=== PATIENT | female | born 1980 | race Caucasian/White ===

== ENCOUNTER 2018-06-21 11:23 | Emergency (ER) | payer BC ==
[~2018-06-21] VITALS: Ht 154.9 cm; Wt 64.4 kg
[2018-06-21 11:54] LABS: BILIRUBIN,URINE NEGATIVE (NEG); CLARITY,URINE CLEAR; COLOR,URINE YELLOW; NITRITE,URINE NEGATIVE (NEG); PROTEIN,URINE NEGATIVE (NEG-TRACE); UROBILINOGEN,URINE 0.2 mg/dL (0.2 mg/dL)
[2018-06-21 12:05] LABS: RBC,URINE 20-40 /HPF (0-2); SQUAMOUS EPITHELIAL CELL,UR MOD /LPF; WBC,URINE OCC /HPF (0-4)
[2018-06-21 12:06] LABS: BACTERIA,URINE FEW /HPF (0-FEW)
[2018-06-21 12:39] LABS: BASO # 0.1 x10^3/uL (0.0-0.2); BASO % 1 % (0-3); EOS % 1 % (0-3); HEMATOCRIT 42.7 % (36.0-47.0); HEMOGLOBIN 14.7 g/dL (12.0-15.5); LYMPH # 1.7 x10^3/uL (1.0-4.8); LYMPH % 22 % (24-48); MEAN CORPUSCULAR HEMOGLOBIN 32 pg (25-35); MEAN CORPUSCULAR HGB CONC 34 g/dL (31-37); MEAN CORPUSCULAR VOLUME 92 fL (79-100); MONO # 0.5 x10^3/uL (0.0-1.1); MONO % 7 % (0-9); NEUT # 5.2 x10^3uL (1.8-7.7); NEUT % 69 % (31-73); PLATELET COUNT 259 x10^3/uL (140-400); RED BLOOD COUNT 4.64 x10^6/uL (3.50-5.40); RED CELL DISTRIBUTION WIDTH 13.1 % (11.5-14.5); WHITE BLOOD COUNT 7.6 x10^3/uL (4.0-11.0)
[2018-06-21 12:55] LABS: CALCIUM 9.7 mg/dL (8.5-10.1); CREATININE 0.7 mg/dL (0.6-1.0); GFR 93.6; POTASSIUM 3.8 mmol/L (3.5-5.1)
[2018-06-21 13:00] LABS: ALBUMIN 3.8 g/dL (3.4-5.0); ALBUMIN/GLOBULIN RATIO 0.9 (1.0-1.7); TOTAL BILIRUBIN 0.3 mg/dL (0.2-1.0); TOTAL PROTEIN 7.9 g/dL (6.4-8.2)
--- NOTE | 2018-06-21 13:04 | RAD ---
OB <14 WKS W/TV History: Abdominal pain Comparison: None. Findings: Multiple transabdominal sonographic images of the pelvis are submitted. Uterus measured 11.8 x 6.6 x 8.8 cm. There is single intrauterine gestational sac. There is demonstrable pole although no demonstrable cardiac activity on color Doppler imaging. Left ovary measured 2.4 x 1.8 x 1.7 cm with normal low resistance vascularity. Right ovary measured 2.2 x 2 x 2.4 cm with normal low resistance vascularity. No free fluid is demonstrated. Transvaginal ultrasound: Multiple transvaginal sonographic images of the pelvis are submitted. There is again single intrauterine gestational sac with identifiable pole. However no cardiac activity is demonstrated on M-mode analysis or color Doppler imaging. Tok-rump length measurement of 2.05 cm corresponds with 8 weeks 5 days. Adjusted ultrasound age is 8 weeks 5 days with estimated delivery date of 01/26/2019. LMP age is 15 weeks 0 days with estimated delivery date of 12/13/2018. No free fluid is demonstrated. Mean sac dimension is not submitted although gestational sac measures greater than 4 cm Impression: 1. There is a single intrauterine gestational sac with identifiable pole although no demonstrable cardiac activity on color Doppler imaging or M-mode analysis despite estimated ultrasound age of 8 weeks 5 days, sonographic evidence of demise. Electronically signed by: Ad Welch MD (06/21/2018 1:00 PM) [email or web address]
--- NOTE | 2018-06-21 13:31 | PHYS DOC ---
Past Medical History Additional Past Medical Histor: thyroid disease Past Surgical History: No Surgical History Alcohol Use: None Drug Use: None Adult General Chief Complaint Chief Complaint: ABDOMINAL PAIN IN HPI HPI Patient is a 37 year old female who presents with fear of demise. The patient states that she has been followed by [facility]. She states that her last period was 03/18/2018. She states that they did an ultrasound at [facility] today and stated that there was no cardiac activity. The patient states that she had had some right flank pain and [facility] was worried that she could have an infection. They told her to present to the nearest emergency department. The patient denies vaginal bleeding or pelvic pain. She denies fever, nausea or vomiting. Review of Systems Review of Systems Constitutional: Denies fever or chills [] Eyes: Denies change in visual acuity, redness, or eye pain [] HENT: Denies nasal congestion or sore throat [] Respiratory: Denies cough or shortness of breath [] Cardiovascular: No additional information not addressed in HPI [] GI: Denies abdominal pain, nausea, vomiting, bloody stools or diarrhea [] : See history of present illness Musculoskeletal: Denies back pain or joint pain [] Integument: Denies rash or skin lesions [] Neurologic: Denies headache, focal weakness or sensory changes [] Endocrine: Denies polyuria or polydipsia [] All other systems were reviewed and found to be within normal limits, except as documented in this note. Allergies Allergies Allergies Coded Allergies Type Severity Reaction Last Updated Verified codeine Allergy Severe 06/21/18 Yes Physical Exam Physical Exam Constitutional: Well developed, well nourished, no acute distress, non-toxic appearance. [] Cardiovascular:Heart rate regular rhythm, no murmur [] Lungs & Thorax: Bilateral breath sounds clear to auscultation [] Abdomen: Bowel sounds normal, soft, no tenderness, no masses, no pulsatile masses. [] Skin: Warm, dry, no erythema, no rash. [] Back: No tenderness, no CVA tenderness. [] Extremities: No tenderness, no cyanosis, no clubbing, ROM intact, no edema. [] Neurologic: Alert and oriented X 3, normal motor function, normal sensory function, no focal deficits noted. [] Psychologic: Affect normal, judgement normal, mood normal. [] Current Patient Data Vital Signs Vital Signs Date Time Temp Pulse Resp B/P (MAP) Pulse Ox O2 Delivery O2 Flow Rate FiO2 06/21/18 13:53 68 16 132/63 (86) 98 Room Air 06/21/18 11:57 98.9 98.9 Lab Values Laboratory Tests Test 06/21/18 11:30 06/21/18 11:34 06/21/18 12:08 Urine Collection Type Unknown Urine Color Yellow Urine Clarity Clear Urine pH 7.0 Urine Specific Birney 1.010 Urine Protein Negative mg/dL (NEG-TRACE) Urine Glucose (UA) Negative mg/dL (NEG) Urine Ketones (Stick) Negative mg/dL (NEG) Urine Blood Small (NEG) Urine Nitrite Negative (NEG) Urine Bilirubin Negative (NEG) Urine Urobilinogen Dipstick 0.2 mg/dL (0.2 mg/dL) Urine Leukocyte Esterase Negative (NEG) Urine RBC 20-40 /HPF (0-2) Urine WBC Occ /HPF (0-4) Urine Squamous Epithelial Cells Mod /LPF Urine Bacteria Few /HPF (0-FEW) Urine Mucus Mod /LPF POC Urine HCG, Qualitative Hcg positive (Negative) White Blood Count 7.6 x10^3/uL (4.0-11.0) Red Blood Count 4.64 x10^6/uL (3.50-5.40) Hemoglobin 14.7 g/dL (12.0-15.5) Hematocrit 42.7 % (36.0-47.0) Mean Corpuscular Volume 92 fL (79-100) Mean Corpuscular Hemoglobin 32 pg (25-35) Mean Corpuscular Hemoglobin Concent 34 g/dL (31-37) Red Cell Distribution Width 13.1 % (11.5-14.5) Platelet Count 259 x10^3/uL (140-400) Neutrophils (%) (Auto) 69 % (31-73) Lymphocytes (%) (Auto) 22 % (24-48) L Monocytes (%) (Auto) 7 % (0-9) Eosinophils (%) (Auto) 1 % (0-3) Basophils (%) (Auto) 1 % (0-3) Neutrophils # (Auto) 5.2 x10^3uL (1.8-7.7) Lymphocytes # (Auto) 1.7 x10^3/uL (1.0-4.8) Monocytes # (Auto) 0.5 x10^3/uL (0.0-1.1) Eosinophils # (Auto) 0.0 x10^3/uL (0.0-0.7) Basophils # (Auto) 0.1 x10^3/uL (0.0-0.2) Maternal Serum HCG Beta Subunit 2354 mIU/mL (0-5) H Sodium Level 140 mmol/L (136-145) Potassium Level 3.8 mmol/L (3.5-5.1) Chloride Level 103 mmol/L (98-107) Carbon Dioxide Level 25 mmol/L (21-32) Anion Gap 12 (6-14) Blood Urea Nitrogen 9 mg/dL (7-20) Creatinine 0.7 mg/dL (0.6-1.0) Estimated GFR (Cockcroft-Gault) 93.6 BUN/Creatinine Ratio 13 (6-20) Glucose Level 90 mg/dL (70-99) Calcium Level 9.7 mg/dL (8.5-10.1) Total Bilirubin 0.3 mg/dL (0.2-1.0) Aspartate Amino Transferase (AST) 13 U/L (15-37) L Alanine Aminotransferase (ALT) 23 U/L (14-59) Alkaline Phosphatase 67 U/L (46-116) Total Protein 7.9 g/dL (6.4-8.2) Albumin 3.8 g/dL (3.4-5.0) Albumin/Globulin Ratio 0.9 (1.0-1.7) L Laboratory Tests 06/21/18 12:08 Laboratory Tests 06/21/18 12:08 EKG EKG [] Radiology/Procedures Radiology/Procedures []Signed PATIENT: YOANDY SHAW ACCOUNT: [id number] : 1980 LOCATION: ER AGE: 37 SEX: F EXAM STATUS: REG ER ORD. PHYSICIAN: CHETAN BAEZ APRN REASON: probable demise, ABDOMINAL PAIN RT PROCEDURE: OB <14 WKS W/TV OB <14 WKS W/TV History: Abdominal pain Comparison: None. Findings: Multiple transabdominal sonographic images of the pelvis are submitted. Uterus measured 11.8 x 6.6 x 8.8 cm. There is single intrauterine gestational sac. There is demonstrable pole although no demonstrable cardiac activity on color Doppler imaging. Left ovary measured 2.4 x 1.8 x 1.7 cm with normal low resistance vascularity. Right ovary measured 2.2 x 2 x 2.4 cm with normal low resistance vascularity. No free fluid is demonstrated. Transvaginal ultrasound: Multiple transvaginal sonographic images of the pelvis are submitted. There is again single intrauterine gestational sac with identifiable pole. However no cardiac activity is demonstrated on M-mode analysis or color Doppler imaging. Radom-rump length measurement of 2.05 cm corresponds with 8 weeks 5 days. Adjusted ultrasound age is 8 weeks 5 days with estimated delivery date of 01/26/2019. LMP age is 15 weeks 0 days with estimated delivery date of 12/13/2018. No free fluid is demonstrated. Mean sac dimension is not submitted although gestational sac measures greater than 4 cm Impression: 1. There is a single intrauterine gestational sac with identifiable pole although no demonstrable cardiac activity on color Doppler imaging or M-mode analysis despite estimated ultrasound age of 8 weeks 5 days, sonographic evidence of demise. Electronically signed by: Annie Neal MD (06/21/2018 1:00 PM) [email or web address] DICTATED and SIGNED BY: ANNIE NEAL MD DATE: 06/21/18 1255 Course & Med Decision Making Course & Med Decision Making Pertinent Labs and Imaging studies reviewed. (See chart for details) []Dr. Salcido was consulted in the care of this patient. He recommends the patient call his office for an appointment for outpatient follow-up and probable D&C. The patient is in agreement with this plan. Staff Physician Addendum: I was working in the ER during the course of this patient's visit. I was available for consultation as needed, but I was not directly involved in the care of this patient. Dragon Disclaimer Dragon Disclaimer This electronic medical record was generated, in whole or in part, using a voice recognition dictation system. Departure Departure Impression: Primary Impression: demise Disposition: 01 HOME, SELF-CARE Condition: STABLE Referrals: UNKNOWN PCP NAME (PCP) DOMINIQUE SALCIDO MD Patient Instructions: Intrauterine Demise Additional Instructions: Call Dr. Salcido's office today to make an appointment. If you began having abdominal pain or are soaking through more than 2 Kotex an hour return to the emergency department immediately. CHETAN BAEZ APRN Jun 21, 2018 13:31 MARCIO TA MD Jun 21, 2018 16:49
[2018-06-21 13:53] VITALS: BP 132/63
[2018-06-21] MEDS ORDERED: LEVO100T5 PO (20:36)
== END 2018-06-21 14:04 | disposition home or self-care (01) ==
LOC: ER 11:23
DX: O36.4XX0 Maternal care for intrauterine death, not applicable or unspecified (principal); Z3A.08 8 weeks gestation of pregnancy; Z88.5 Allergy status to narcotic agent
CPT/HCPCS: 36415; 76801; 76817; 80053; 81001; 81025; 84702; 85025; 86850; 86900; 86901; 87040; 99284-25